=== PATIENT | female | born 1965 | race Caucasian/White ===

== ENCOUNTER 2017-03-02 22:00 | Emergency (ER) | payer MEDICARE, OTHER ==
[2017-03-02] MEDS ORDERED: Sodium Chloride 0.9% 1,000 ML IV ONE (23:07)
[2017-03-02] MEDS ORDERED: HYDROmorphone 1 mg/mL 1mL Syr IVP STA (23:08)
[2017-03-02] MEDS ORDERED: HYDROmorphone 1 mg/mL 1mL Syr ONE (23:12)
--- NOTE | 2017-03-02 23:16 | ED Physician Chart ---
Chief Complaint/HPI - Patient Information Date Seen:: 03/02/17 Time Seen:: 22:45 Chief Complaint:: RUQ pain. History of Present Illness:: Pt. has had RUQ again today, starting this AM. No nausea, vomit or dysuria. Has had similar pain in past, and been worked up, but no dx. S/p hyst. Also had lap band and subsequent removal. No hx of cholecytectomy or appendectomy. Allergies:: Allergies Allergy/AdvReac Type Severity Reaction Status Date / Time kiwi Allergy Verified 03/02/17 22:30 Penicillins [PCN] Allergy Verified 03/02/17 22:30 paper tape Allergy Uncoded 03/02/17 22:30 Vitals:: Vital Signs - 8 hr 03/02/17 22:30 Temp 97.8 F HR 110 RR 18 BP 118/76 O2 Sat % 96 Review of Systems - Review of Systems General/Constitutional: No fever, No chills Skin: No skin lesions Head: Headache ENT: No earache, No sore throat Neck: Neck pain Cardio Vascular: No chest pain, No palpitations Pulmonary: No SOB, No cough GI: No nausea, No vomiting, No diarrhea G/U: No dysuria [employer] E[employer] 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 vaginal discharge (s/p hyst) Musculoskeletal: Other (chronic fibromyalgia) Psychiatric: Prior psych history Neurological: No syncope, No focal symptoms Past Medical History - Past Medical History Past Medical History: Other (Gitelman syndrome, fibromyalgia) Family History: None Social History: Non Smoker, No Alcohol Surgical History: Hysterectomy, other (lap band) Psychiatricy History: Depression Medication Reviewed:: cymbalta, minerals, flexeril Family Medical History - Family Member Mother History Unknown: Yes Physical Exam - Physical Examination General/Constitutional: Awake, Well-developed, well-nourished, Alert, GCS 15, Non-toxic appearing, Ambulatory Head: Atraumatic Eyes: Lids, conjuctiva normal, PERRL, EOMI Skin: Nl inspection ENMT: External ears, nose nl Neck: Nontender, Full ROM w/o pain Respiratory: Nl effort/Exclusion, Clear to Auscultation Cardio Vascular: RRR, No murmur, gallop, rubs Other GI comments:: RUQ tenderness. BS decreased. : No CVA tenderness Extremities: No tenderness or effusion, Full ROM Neuro/Psych: Alert/oriented, Normal motor strength, No focal deficits Labs/Radiology/EKG Results - Lab Results Results: 0025: Pt. was better after injection. US shows thickened GB wall at 4 mm, but no obvious stones. CBD nl. Lactic acid normal. Mag low at 1.2 UA unremarkable.CMP show Na 0f 133, Cl of 96. K is nl at 3.7. Amylase 130, sl. high, but lipase is low at 5. WBC is 16.1, H/H = 14.5/43.6. ED Septic Shock - . Is Septic Shock (SBP<90, OR Lactate>4 mmol\L) present?: No - <6hrs of presentation: Vital Signs: Vital Signs - 8 hr 03/02/17 22:30 Temp 97.8 F HR 110 RR 18 BP 118/76 O2 Sat % 96 Reassessment (Disposition) - Diagnosis Diagnosis:: Dx: 1. Abd. pain, biliary colic with elevated amylase 2. Hypomagnesimia consistent with Gitelman's syndrome - Aftercare/Follow up Instructions Aftercare/Follow-Up Instructions:: Counseled pt & family regarding lab results/ diagnosis & need follow up Medication Prescribed:: Rx: [place] 5/325 one po q4h prn. No driving. Disp. #15. No refill. - Patient Disposition Discharge/Transfer:: Home Condition at Disposition:: Stable
[2017-03-02 23:18] LABS: % EOSINOPHILS 0.6 % (0.0-5.0); MEAN CORPUSCULAR HGB CONC 33.2 pg (28.0-36.0)
[2017-03-02 23:23] LABS: % BASOPHILS 0.7 % (0.0-2.0); % LYMPHOCYTES 24.4 % (20.0-50.0); % MONOCYTES 3.7 % (2.0-10.0); % NEUTROPHILS 70.6 % (40.0-80.0); MEAN CELL VOLUME 82.2 fl (81-100); MEAN CORPUSCULAR HEMOGLOBIN 27.3 pg (27.0-31.0); MEAN PLATELET VOLUME 8.5 fl; NEUTROPHILE ABSOLUTE 11.4 Th/cmm (1.8-8.0); PLATELET COUNT 414 Th/cmm (150-400); RED CELL DISTRIBUTION WIDTH 13.9 % (11.5-20.0)
[2017-03-02 23:24] LABS: WHITE BLOOD COUNT 16.1 Th/cmm (4.8-10.8)
[2017-03-02 23:25] LABS: HEMATOCRIT 43.6 % (35.0-45.0); HEMOGLOBIN 14.5 gm/dL (11.7-15.5)
[2017-03-02 23:30] LABS: ALB/GLOB RATIO 1.3 (1.0-1.8); ALKALINE PHOSPHATASE 130 U/L (34-104); AMYLASE SERUM 67 U/L (29-103); ANION GAP 11.7 (7.0-16.0); BILIRUBIN,TOTAL 0.8 mg/dL (0.3-1.0); BUN - UREA NITROGEN 15 mg/dL (7-25); CALCIUM SERUM 10.1 mg/dL (8.6-10.3); CHLORIDE 96 mEq/L (98-107); GLUCOSE 116 mg/dL (70-105); LIPASE 5 U/L (11-82); POTASSIUM SERUM 3.7 mEq/L (3.5-5.1); SGOT 17 U/L (13-39); SGPT/ALT 16 U/L (7-52); SODIUM SERUM 133 mEq/L (136-145)
[2017-03-02 23:30] LABS: URINE BILIRUBIN NEGATIVE (NEGATIVE); URINE BLOOD NEGATIVE (NEGATIVE); URINE COLOR YELLOW; URINE GLUCOSE (UA) NEGATIVE (NEGATIVE); URINE KETONE NEGATIVE (NEGATIVE); URINE PROTEIN NEGATIVE (NEGATIVE); URINE UROBILINOGEN 0.2 E.U./dL (0.2 - 1.0)
[2017-03-02 23:31] LABS: URINE BACTERIA OCCASIONAL /hpf (NONE SEEN); URINE EPITHELIAL CELLS OCCASIONAL /lpf (FEW); URINE RBC 0-2 /hpf (0-5); URINE WBC 0-2 /hpf (0-5)
[2017-03-03] MEDS ORDERED: HYDROmorphone 1 mg/mL 1mL Syr IVP STA ×2 (00:33→02:55)
[2017-03-03] MEDS ORDERED: HYDROmorphone 1 mg/mL 1mL Syr ONE ×2 (00:35→03:14)
[2017-03-03] MEDS ORDERED: Mag Sulfate 2gm/50mL Premix 2 GM/50 ML BAG IV ONE ×2 (00:40→00:43)
--- NOTE | 2017-03-03 10:02 | Diagnostic Imaging Report ---
Abdominal ultrasound (limited, gallbladder) HISTORY: Pain Exam is limited to the gallbladder. No abnormality seen. Specific, no calculi identified. Normal gallbladder wall thickness. No biliary dilatation (common bile duct equals 6 mm). The remainder of the intra-abdominal organs were not evaluated at this time. IMPRESSION: 1. Negative exam of the gallbladder
== END 2017-03-03 03:40 | disposition home or self-care (01) ==
LOC: ER 22:00
DX: K80.50 Calculus of bile duct without cholangitis or cholecystitis without obstruction (principal); E83.42 Hypomagnesemia; Z90.710 Acquired absence of both cervix and uterus; Z88.0 Allergy status to penicillin; Z88.9 Allergy status to unspecified drugs, medicaments and biological substances; Z91.09 Other allergy status, other than to drugs and biological substances
CPT/HCPCS: 99285; 96365; 96361; 96366; 96375; 96376; 76705; 36415; 83605; 85025; 81001; 82150; 83690; 83735; 80053; 87040; J2405; J3475; J1170; J1200; J7030

== ENCOUNTER 2017-04-05 21:09 | Emergency (ER) | payer MEDICARE, OTHER ==
--- NOTE | 2017-04-05 21:12 | ED Physician Chart ---
Chief Complaint/HPI - Patient Information Date Seen:: 04/05/17 Time Seen:: 21:12 Chief Complaint:: muscle cramping History of Present Illness:: 51-year-old female with history of Gettleman's disease/magnesium metabolizing disorder, complains of acute, constant, worsening, aching, severe 10/10, bilateral lower leg muscle cramping with associated leg pain. Does began about 3 days ago. Has had similar symptoms in the past and magnesium has been low. She denies fevers, numbness or tingling, chest pain, palpitations, nausea, vomiting. Allergies:: Allergies Allergy/AdvReac Type Severity Reaction Status Date / Time kiwi Allergy Verified 03/02/17 22:30 Penicillins [PCN] Allergy Verified 03/02/17 22:30 paper tape Allergy Uncoded 03/02/17 22:30 Historian:: Patient Review:: Nurse's Note Reviewed Review of Systems - Review of Systems Other: Complete system review otherwise unremarkable except as noted in history of present illness. Past Medical History - Past Medical History Past Medical History: No significant medical hx Family History: Heart disease Social History: Non Smoker Surgical History: None Family Medical History - Family Member Mother History Unknown: Yes Physical Exam - Physical Examination Other:: INITIAL VITAL SIGNS: Reviewed by me GENERAL: Alert and interactive. Moderate distress due to pain HEAD: Head is normocephalic and atraumatic EYES: EOMI. PERRL. No scleral icterus. No conjunctival injection ENT: Moist mucous membranes. NECK: Supple. No masses. Full range of motion RESPIRATORY: No tachypnea. Clear breath sounds bilaterally. No wheezing, rales, or rhonchi CV: Regular rate and rhythm. No murmurs, rubs, or gallops ABDOMEN: Soft, non-distended, non-tender. No guarding. No rebound. No masses. EXTREMITIES: No deformity. No cyanosis. No edema. SKIN: Warm and dry. No obvious rashes. NEUROLOGIC: Alert and oriented. Face is symmetric. Speech is normal. Moves all extremities equally. Motor and sensory distally intact. Labs/Radiology/EKG Results - Lab Results Results: Lab Results 04/05/17 04/05/17 04/05/17 Range/Units 22:13 22:13 22:20 WBC 12.9 H (4.8-10.8) Th/cmm RBC 4.82 (3.80-5.10) Mil/cmm Hgb 12.9 (11.7-15.5) gm/dL Hct 39.9 (35.0-45.0) % MCV 82.6 (81-100) fl MCH 26.8 L (27.0-31.0) pg MCHC Differential 32.5 (28.0-36.0) pg RDW 14.9 (11.5-20.0) % Plt Count 318 D (150-400) Th/cmm MPV 8.5 fl Neutrophils % 62.6 (40.0-80.0) % Lymphocytes % 27.9 (20.0-50.0) % Monocytes % 7.9 (2.0-10.0) % Eosinophils % 1.4 (0.0-5.0) % Basophils % 0.2 (0.0-2.0) % Sodium (136-145) mEq/L Potassium (3.5-5.1) mEq/L Chloride (98-107) mEq/L Carbon Dioxide (21.0-31.0) mEq/L Anion Gap (7.0-16.0) BUN (7-25) mg/dL Creatinine (0.6-1.2) mg/dL Est GFR ( Amer) (>90) ml/min Est GFR (Non-Af Amer) ml/min BUN/Creatinine Ratio Glucose (70-105) mg/dL Whole Bld Lactic Acid (0.60-1.99) mmol/L Calcium (8.6-10.3) mg/dL Magnesium (1.9-2.7) mg/dL Total Bilirubin (0.3-1.0) mg/dL AST (13-39) U/L ALT (7-52) U/L Alkaline Phosphatase (34-104) U/L Total Protein (6.0-8.3) gm/dL Albumin (3.7-5.3) gm/dL Globulin gm/dL Albumin/Globulin Ratio (1.0-1.8) Urine Source CLEAN C Urine Color YELLOW Urine Clarity CLEAR (CLEAR) Urine pH 7.0 Ur Specific [place] 1.015 (1.005-1.030) Urine Protein NEGATIVE (NEGATIVE) mg/dL Urine Glucose (UA) NEGATIVE (NEGATIVE) mg/dL Urine Ketones NEGATIVE (NEGATIVE) mg/dL Urine Blood NEGATIVE (NEGATIVE) Urine Nitrate NEGATIVE (NEGATIVE) Urine Bilirubin NEGATIVE (NEGATIVE) Urine Urobilinogen 0.2 (0.2 - 1.0) E.U./dL Ur Leukocyte Esterase TRACE H (NEGATIVE) Urine RBC 0-2 (0-5) /hpf Urine WBC 2-5 (0-5) /hpf Ur Epithelial Cells FEW (FEW) /lpf Urine Bacteria FEW (NONE SEEN) /hpf Urine Test NEGATIVE 04/05/17 04/05/17 Range/Units 22:20 22:50 WBC (4.8-10.8) Th/cmm RBC (3.80-5.10) Mil/cmm Hgb (11.7-15.5) gm/dL Hct (35.0-45.0) % MCV (81-100) fl MCH (27.0-31.0) pg MCHC Differential (28.0-36.0) pg RDW (11.5-20.0) % Plt Count (150-400) Th/cmm MPV fl Neutrophils % (40.0-80.0) % Lymphocytes % (20.0-50.0) % Monocytes % (2.0-10.0) % Eosinophils % (0.0-5.0) % Basophils % (0.0-2.0) % Sodium 135 L (136-145) mEq/L Potassium 3.5 (3.5-5.1) mEq/L Chloride 106 (98-107) mEq/L Carbon Dioxide 25.3 (21.0-31.0) mEq/L Anion Gap 7.2 (7.0-16.0) BUN 17 (7-25) mg/dL Creatinine 0.8 (0.6-1.2) mg/dL Est GFR ( Amer) > 60.0 (>90) ml/min Est GFR (Non-Af Amer) > 60.0 ml/min BUN/Creatinine Ratio 21.3 Glucose 157 H (70-105) mg/dL Whole Bld Lactic Acid 1.33 (0.60-1.99) mmol/L Calcium 9.4 (8.6-10.3) mg/dL Magnesium 1.5 L (1.9-2.7) mg/dL Total Bilirubin 0.3 (0.3-1.0) mg/dL AST 16 (13-39) U/L ALT 17 (7-52) U/L Alkaline Phosphatase 125 H (34-104) U/L Total Protein 6.9 (6.0-8.3) gm/dL Albumin 4.1 (3.7-5.3) gm/dL Globulin 2.8 gm/dL Albumin/Globulin Ratio 1.5 (1.0-1.8) Urine Source Urine Color Urine Clarity (CLEAR) Urine pH Ur Specific [place] (1.005-1.030) Urine Protein (NEGATIVE) mg/dL Urine Glucose (UA) (NEGATIVE) mg/dL Urine Ketones (NEGATIVE) mg/dL Urine Blood (NEGATIVE) Urine Nitrate (NEGATIVE) Urine Bilirubin (NEGATIVE) Urine Urobilinogen (0.2 - 1.0) E.U./dL Ur Leukocyte Esterase (NEGATIVE) Urine RBC (0-5) /hpf Urine WBC (0-5) /hpf Ur Epithelial Cells (FEW) /lpf Urine Bacteria (NONE SEEN) /hpf Urine Test ED Septic Shock - . Is Septic Shock (SBP<90, OR Lactate>4 mmol\L) present?: No Reassessment (Disposition) - Reassessment Reassessment:: Patient has known Gettleman's disease. She has probably metabolizing magnesium. Magnesium was 1.5. The causing the muscle cramps. Replace magnesium. Gave IV analgesics and IV fluids. Symptoms resolved. Follow-up PCP 1-2 days. Return to ER precautions given. Patient says she understands and agrees with plan. Blood pressure was noted to be elevated over 120/80. There were no signs of hypertension. Discussed the findings with the patient and recommended that the patient follow up with the primary care physician regarding the elevated blood pressure. Reassessment Condition:: Improved - Diagnosis Diagnosis:: Acute lower extremity muscle cramping due to Acute hypomagnesemia caused by underlying magnesium metabolizing disorder. Gettleman's disease Elevated blood pressure without the diagnosis of hypertension - Aftercare/Follow up Instructions Aftercare/Follow-Up Instructions:: Counseled pt regarding lab results/diagnosis & need follow up, Refer to Discharge Instructions - Patient Disposition Discharge/Transfer:: Home Time:: 23:55 Condition at Disposition:: Improved ED Discharge Plan - Patient Disposition Admit/Discharge/Transfer: PT DISCHARGED HOME Condition at Disposition: Improved Instructions: Muscle Cramps and Spasms
[2017-04-05] MEDS ORDERED: Mag Sulfate 2gm/50mL Premix 2 GM/50 ML BAG IV ONE (21:49)
[2017-04-05] MEDS ORDERED: Morphine Sulfate 4 mg/mL 1mL Syr ONE ×2 (21:50→23:29)
[2017-04-05] MEDS: Sodium Chloride 0.9% 1,000 ML IV ONE (21:52)
[2017-04-05 22:26] LABS: % BASOPHILS 0.2 % (0.0-2.0); % EOSINOPHILS 1.4 % (0.0-5.0); % LYMPHOCYTES 27.9 % (20.0-50.0); % MONOCYTES 7.9 % (2.0-10.0); % NEUTROPHILS 62.6 % (40.0-80.0); HEMATOCRIT 39.9 % (35.0-45.0); HEMOGLOBIN 12.9 gm/dL (11.7-15.5); MEAN CELL VOLUME 82.6 fl (81-100); MEAN CORPUSCULAR HEMOGLOBIN 26.8 pg (27.0-31.0); MEAN CORPUSCULAR HGB CONC 32.5 pg (28.0-36.0); MEAN PLATELET VOLUME 8.5 fl; NEUTROPHILE ABSOLUTE 8.1 Th/cmm (1.8-8.0); RED BLOOD COUNT 4.82 Mil/cmm (3.80-5.10); RED CELL DISTRIBUTION WIDTH 14.9 % (11.5-20.0)
[2017-04-05 22:32] LABS: PLATELET COUNT 318 Th/cmm (150-400); WHITE BLOOD COUNT 12.9 Th/cmm (4.8-10.8)
[2017-04-05] MEDS: Morphine Sulfate 4 mg/mL 1mL Syr IVP STA ×2 (22:40→23:33)
[2017-04-05 22:43] LABS: URINE BILIRUBIN NEGATIVE (NEGATIVE); URINE BLOOD NEGATIVE (NEGATIVE); URINE GLUCOSE (UA) NEGATIVE (NEGATIVE); URINE KETONE NEGATIVE (NEGATIVE); URINE PROTEIN NEGATIVE (NEGATIVE); URINE UROBILINOGEN 0.2 E.U./dL (0.2 - 1.0)
[2017-04-05 22:43] LABS: ALB/GLOB RATIO 1.5 (1.0-1.8); ALKALINE PHOSPHATASE 125 U/L (34-104); ANION GAP 7.2 (7.0-16.0); BILIRUBIN,TOTAL 0.3 mg/dL (0.3-1.0); BUN - UREA NITROGEN 17 mg/dL (7-25); BUN/CREATININE RATIO 21.3; CALCIUM SERUM 9.4 mg/dL (8.6-10.3); CARBON DIOXIDE 25.3 mEq/L (21.0-31.0); CHLORIDE 106 mEq/L (98-107); CREATININE - SERUM 0.8 mg/dL (0.6-1.2); GLUCOSE 157 mg/dL (70-105); MAGNESIUM 1.5 mg/dL (1.9-2.7); POTASSIUM SERUM 3.5 mEq/L (3.5-5.1); SGOT 16 U/L (13-39); SGPT/ALT 17 U/L (7-52); SODIUM SERUM 135 mEq/L (136-145)
[2017-04-05 22:44] LABS: URINE BACTERIA FEW /hpf (NONE SEEN); URINE COLOR YELLOW; URINE EPITHELIAL CELLS FEW /lpf (FEW); URINE RBC 0-2 /hpf (0-5)
[2017-04-05] MEDS: Mag Sulfate 2gm/50mL Premix 2 GM/50 ML BAG IV ONE (22:57)
== END 2017-04-06 00:45 | disposition home or self-care (01) ==
LOC: ER 21:09
DX: E83.42 Hypomagnesemia (principal); R03.0 Elevated blood-pressure reading, without diagnosis of hypertension; Z88.0 Allergy status to penicillin; Z91.09 Other allergy status, other than to drugs and biological substances
CPT/HCPCS: 99284; 96365; 96375; 96376; 36415; 83605; 85025; 81001; 81025; 83735; 80053; 87040; J3475; J2405; J1200; J7030; Z7502

== ENCOUNTER 2017-06-20 16:13 | Emergency (ER) | payer MEDICARE, OTHER ==
[2017-06-20 16:39] LABS: % BASOPHILS 1.2 % (0.0-2.0); % EOSINOPHILS 1.7 % (0.0-5.0); % MONOCYTES 4.2 % (2.0-10.0); % NEUTROPHILS 59.9 % (40.0-80.0); HEMATOCRIT 40.2 % (35.0-45.0); MEAN CELL VOLUME 84.6 fl (81-100); MEAN CORPUSCULAR HEMOGLOBIN 27.3 pg (27.0-31.0); MEAN CORPUSCULAR HGB CONC 32.2 pg (28.0-36.0); MEAN PLATELET VOLUME 8.7 fl; NEUTROPHILE ABSOLUTE 5.2 Th/cmm (1.8-8.0); PLATELET COUNT 325 Th/cmm (150-400); RED BLOOD COUNT 4.75 Mil/cmm (3.80-5.10); RED CELL DISTRIBUTION WIDTH 14.3 % (11.5-20.0)
[2017-06-20 16:43] LABS: WHITE BLOOD COUNT 8.7 Th/cmm (4.8-10.8)
[2017-06-20 16:54] LABS: INR 0.99 (0.5-1.4); PROTHROMBIN TIME (TEST) 10.3 SECONDS (9.5-11.5)
[2017-06-20 16:56] LABS: ALB/GLOB RATIO 1.5 (1.0-1.8); ALKALINE PHOSPHATASE 124 U/L (34-104); BILIRUBIN,TOTAL 0.7 mg/dL (0.3-1.0); BUN - UREA NITROGEN 14 mg/dL (7-25); BUN/CREATININE RATIO 15.6; CALCIUM SERUM 9.6 mg/dL (8.6-10.3); CARBON DIOXIDE 28.4 mEq/L (21.0-31.0); CHLORIDE 101 mEq/L (98-107); CREATININE - SERUM 0.9 mg/dL (0.6-1.2); GLUCOSE 125 mg/dL (70-105); POTASSIUM SERUM 3.4 mEq/L (3.5-5.1); SGOT 22 U/L (13-39); SGPT/ALT 30 U/L (7-52); SODIUM SERUM 135 mEq/L (136-145)
[2017-06-20 16:57] LABS: CHOLESTEROL 197 mg/dL (<200); TRIGLYCERIDES 150 mg/dL (<150)
[2017-06-20] MEDS ORDERED: Potassium Chloride Elixir 20 mEq /15 mL UDC PO ONE (17:02)
--- NOTE | 2017-06-20 17:02 | ED Physician Chart ---
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) Review:: Nurse's Note Reviewed, Old Chart Reviewed Review of Systems - Review of Systems General/Constitutional: No fever, No chills, No weight loss, No weakness, No diaphoresis, No edema, No loss of appetite Skin: No skin lesions, No rash, No bruising Head: No headache, No light-headedness Eyes: No loss of vision, No pain, No diplopia ENT: No earache, No nasal drainage, No sore throat, No tinnitus Neck: No neck pain, No swelling, No thyromegaly, No stiffness, No mass noted Cardio Vascular: No chest pain, No palpitations, No PND, No orthopnea, No edema Pulmonary: No SOB, No cough, No sputum, No wheezing GI: No nausea, No vomiting, No diarrhea, No pain, No melena, No hematochezia, No constipation, No hematemesis G/U: No dysuria, No frequency, No hematuria Musculoskeletal: No bone or joint pain, No back pain, Muscle pain Endocrine: No polyuria, No polydipsia Psychiatric: No prior psych history, No depression, No anxiety, No suicidal ideation Hematopoietic: No bruising, No lymphadenopathy Allergic/Immuno: No urticaria, No angioedema Neurological: No syncope, No focal symptoms, No weakness, No paresthesia, No headache, No seizure, No dizziness, No confusion, No vertigo Past Medical History - Past Medical History Obtainable: Yes Past Medical History: Renal stone, Arthritis, Other (GITELMANS DISEASE) Family History: None Social History: Non Smoker, No Alcohol, No Drug Use Surgical History: Appendectomy, Cholecystectomy, Hysterectomy Psychiatricy History: None Medication: Reviewed Family Medical History - Family Member Mother History Unknown: Yes Physical Exam - Physical Examination General/Constitutional: Awake, Well-developed, well-nourished, Alert, No distress, GCS 15, Non-toxic appearing, Ambulatory Other Gen/Cons comments:: OBESE Head: Atraumatic Eyes: Lids, conjuctiva normal, PERRL, EOMI Skin: Nl inspection, No rash, No skin lesions, No ecchymosis, Well hydrated, No lymphadenopathy ENMT: External ears, nose nl, Nasal exam nl, Lips, teeth, gums nl Neck: Nontender, Full ROM w/o pain, No JVD, No nuchal rigidity, No bruit, No mass, No stridor Respiratory: Nl effort/Exclusion, Clear to Auscultation, No Wheeze/Rhonchi/Rales Cardio Vascular: RRR, No murmur, gallop, rubs, NL S1 S2 GI: No tenderness/rebounding/guarding, No organomegaly, No hernia, Normal BS's, Nondistended, No mass/bruits, No McBurney tenderness : No CVA tenderness Extremities: Full ROM, normal strength in all extremities, No edema, Normal digits & nails Other Extremities comments:: LEG MUSCLES SPASMS. Neuro/Psych: Alert/oriented, DTR's symmetric, Normal sensory exam, Normal motor strength, Judgement/insight normal, Mood normal, Normal gait, No focal deficits Misc: normal gait, Normal back, No paraspinal tenderness Labs/Radiology/EKG Results - Lab Results Results: Laboratory Tests 06/20/17 16:32 WBC 8.7 D RBC 4.75 Hgb 13.0 Hct 40.2 MCV 84.6 MCH 27.3 MCHC Differential 32.2 RDW 14.3 Plt Count 325 MPV 8.7 Neutrophils % 59.9 Lymphocytes % 33.0 Monocytes % 4.2 Eosinophils % 1.7 Basophils % 1.2 Assessment - Assessment General Assessment: LEG MUSCLE SPASM FROM LOW POTASSIUM AND LOW MAGNESIUM. SHE WAS GIVEN POTASSIUM AND MAGNESIUM WITH ANALGESICS ED Septic Shock - . Is Septic Shock (SBP<90, OR Lactate>4 mmol\L) present?: No - <6hrs of presentation: Vital Signs: Vital Signs - 8 hr 06/20/17 16:27 Temp 98.1 F HR 94 RR 17 BP 129/66 O2 Sat % 96 Reassessment (Disposition) - Reassessment Reassessment Condition:: Improved - Diagnosis Diagnosis:: GITELMANS DISEASE LEG PAIN - Aftercare/Follow up Instructions Aftercare/Follow-Up Instructions:: Counseled pt regarding lab results/diagnosis & need follow up, Refer to Discharge Instructions, Counseled pt & family regarding lab results/diagnosis & need follow up - Patient Disposition Discharge/Transfer:: Home Condition at Disposition:: Improved ED Discharge Plan - Patient Disposition Admit/Discharge/Transfer: PT DISCHARGED HOME Condition at Disposition: Improved Prescriptions: Gabapentin 800 mg PO Q6H PRN #20 tablet PRN Reason: pain Instructions: Leg Cramps
[2017-06-20 17:03] LABS: URINE BILIRUBIN NEGATIVE (NEGATIVE); URINE BLOOD NEGATIVE (NEGATIVE); URINE COLOR YELLOW; URINE GLUCOSE (UA) NEGATIVE (NEGATIVE); URINE KETONE NEGATIVE (NEGATIVE); URINE PH 5.5; URINE PROTEIN NEGATIVE (NEGATIVE); URINE UROBILINOGEN 0.2 E.U./dL (0.2 - 1.0)
[2017-06-20 17:04] LABS: URINE BACTERIA FEW /hpf (NONE SEEN); URINE EPITHELIAL CELLS FEW /lpf (FEW); URINE RBC NONE SEEN /hpf (0-5); URINE WBC 0-2 /hpf (0-5)
[2017-06-20] MEDS ORDERED: HYDROmorphone 2 mg/mL 1mL Vial IVP STA (17:09)
[2017-06-20] MEDS ORDERED: Potassium Chloride Elixir 20 mEq /15 mL UDC ONE (17:09)
[2017-06-20] MEDS ORDERED: Mag Sulfate 2gm/50mL Premix 2 GM/50 ML BAG IV ONE ×2 (17:10→17:22)
[2017-06-20] MEDS ORDERED: HYDROmorphone 2 mg/mL 1mL Vial ONE (17:22)
== END 2017-06-20 19:05 | disposition home or self-care (01) ==
LOC: ER 16:13
DX: N28.89 Other specified disorders of kidney and ureter (principal); M79.606 Pain in leg, unspecified; Z88.0 Allergy status to penicillin; Z91.09 Other allergy status, other than to drugs and biological substances; Z91.02 Food additives allergy status; Z90.49 Acquired absence of other specified parts of digestive tract; Z90.710 Acquired absence of both cervix and uterus
CPT/HCPCS: 99285; 96365; 96372; 96375; 84484; 36415; 84443; 86592; 85025; 85610; 85730; 81001; 83735; 80053; 80061; J3475; J1885; J2405; J1170; J1200